=== PATIENT | female | born 1945 | race Caucasian/White ===

== ENCOUNTER 2016-11-07 18:34 | Emergency (ER) | payer MEDICARE, OTHER ==
[2016-11-07] VITALS (7 sets, daily range): BP systolic 164–216; BP diastolic 64–119; PULSE 82–139; RESP 16–20; TEMP 98.1; O2SAT 97–100
[~2016-11-07] VITALS: Ht 160 cm; Wt 75.0 kg
[~2016-11-07 18:34] MED LIST: B12-1CHW PO; CYCL1TAB29 PO; ENAL10TA PO; HYDR-3583 PO; LEVA750T PO; WARF-23 PO; ZOFR4TAB3 SL
[2016-11-07] MEDS ORDERED: diphenhydrAMINE HCL 50 MG/ML VIAL IVP ONE (19:45)
[2016-11-07] MEDS ORDERED: PROCHLORPERAZINE INJ 10 MG/2 ML VIAL IVP ONE (19:45)
[2016-11-07] MEDS ORDERED: MORPHINE SULFATE 8 MG/ML INJ IV PUSH ONE (19:45)
[2016-11-07] MEDS ORDERED: KETOROLAC TROMETHAMINE 30 MG/ML (IVP) VIAL IVP ONE (19:45)
[2016-11-07] MEDS ORDERED: SODIUM CHLORIDE 0.9% FLUSH 10 ML FLUSH IVF PRN (19:45)
[2016-11-07] MEDS ORDERED: hydrALAZINE HCL 20 MG/ML VIAL IV PUSH ONE (19:45)
--- NOTE | 2016-11-07 19:52 | PD ---
HPI Chief Complaint: Headache Time Seen by Provider: 19:33 Travel History International Travel<30 days: No Contact w/Intl Traveler<30days: No Traveled to known affect area: No History of Present Illness HPI The patient is a 71-year-old female with a history of migraine headaches who complains of a left frontal headache beginning 3 days ago. The headache got worse in the last 4 days. Usually she is able to take a pain pill and get rid of the headaches but this time it did not work. The last time she had a similar headache was around 2011. She does have nausea and vomiting and photophobia and phonophobia. She is not on any blood thinners and denies any head trauma. She denies any fever. She denies any stiff neck. She has generalized weakness. She denies any focal weakness or sensory loss. The patient is under pain management for chronic back pain. She also states she has been under a lot of stress lately. PFSH Past Medical History Hx Anticoagulant Therapy: No AAA: Yes Arthritis: Yes Atrial Fibrillation: Yes Autoimmune Disease: Yes (RA) Blood Disorders: No Anxiety: No Depression: No Cancer: No Cardiovascular Problems: Yes (htn on meds) High Cholesterol: Yes Cerebrovascular Accident: Yes (TIA) Diminished Hearing: No Endocrine: No Gastrointestinal Disorders: No Genitourinary: No Headaches: Yes Hypertension: Yes Immune Disorder: Yes Musculoskeletal: Yes (Chronic back pain ) Neurologic: Yes Psychiatric: No Reproductive: No Respiratory: No Menopausal: Yes Past Surgical History Abdominal Surgery: Yes (APPENDIX) AICD: No Appendectomy: Yes Arteriovenous Shunt: No Genitourinary Surgery: Yes (Bladder tuck) Gynecologic Surgery: Yes (hysterectomy) Hysterectomy: Yes Insulin Pump: No Joint Replacement: Yes (r knee replacement) Pacemaker: No Social History Alcohol Use: No Tobacco Use: No Substance Use: No Allergies-Medications (Allergen,Severity, Reaction): Coded Allergies: Penicillin (Verified Allergy, Severe, Hives, 11/07/16) Reported Meds & Prescriptions Reported Meds & Active Scripts Active Phenergan (Promethazine HCl) 25 Mg Tab 25 Mg PO Q6H PRN Fioricet (Novxbehili-Mgcqlcddaeuut-Iegftssz) 50-300-40 Mg Cap 1-2 Cap PO Q6H PRN Reported Aspirin 81 Mg Tabdr 81 Mg PO DAILY Flexeril (Cyclobenzaprine HCl) 10 Mg Tab 10 Mg PO BID Hydrocodone-Acetaminophen 10-325 mg Tab 1 Tab PO Q6H PRN Enalapril (Enalapril Maleate) 10 Mg Tab 10 Mg PO DAILY D52-Ulvvpq (Methylcobalamin) 1 Mg Chew 1,000 Mg PO DAILY Review of Systems Except as stated in HPI: all other systems reviewed are Neg Physical Exam Narrative GENERAL: The patient is alert, oriented 3, slightly anxious appearing in moderate apparent distress with her headache. Her vital signs show blood pressure 173/98 but are otherwise normal. SKIN: Focused skin assessment warm/dry. HEAD: Atraumatic. Normocephalic. EYES: Pupils equal and round. No scleral icterus. No injection or drainage. ENT: No nasal bleeding or discharge. Mucous membranes pink and moist. NECK: Trachea midline. No JVD. The patient flexes neck so that her chin touches chest without any problem, there is no meningismus. CARDIOVASCULAR: Regular rate and rhythm. No murmur appreciated. RESPIRATORY: No accessory muscle use. Clear to auscultation. Breath sounds equal bilaterally. GASTROINTESTINAL: Abdomen soft, non-tender, nondistended. Hepatic and splenic margins not palpable. MUSCULOSKELETAL: No obvious deformities. No clubbing. No cyanosis. No edema. NEUROLOGICAL: Awake and alert. No obvious cranial nerve deficits. Motor grossly within normal limits. Normal speech and gait. PSYCHIATRIC: The patient appears slightly anxious; insight and judgment normal. Data Data Last Documented VS Vital Signs Date Time Temp Pulse Resp B/P Pulse Ox O2 Delivery O2 Flow Rate FiO2 11/07/16 20:21 99 18 165/64 100 Room Air 11/07/16 18:44 98.1 Orders Complete Blood Count With Diff (11/07/16 19:44) Basic Metabolic Panel (Bmp) (11/07/16 19:44) Westergren Sedimentation Rate (11/07/16 19:44) C-Reactive Protein (Crp) (11/07/16 19:44) Ct Brain W/O Iv Contrast(Rout) (11/07/16 19:44) Ecg Monitoring (11/07/16 19:44) Iv Access Insert/Monitor (11/07/16 19:44) Oximetry (11/07/16 19:44) Sodium Chloride 0.9% Flush (Ns Flush) (11/07/16 19:45) Ketorolac Inj (Toradol Inj) (11/07/16 19:45) Prochlorperazine Inj (Compazine Inj) (11/07/16 19:45) Diphenhydramine Inj (Benadryl Inj) (11/07/16 19:45) Morphine Inj (Morphine Inj) (11/07/16 19:45) Hydralazine Inj (Apresoline Inj) (11/07/16 19:45) Potassium Chloride (Kcl) (11/07/16 20:30) Electrocardiogram (11/07/16 19:26) Labs Laboratory Tests Test 11/07/16 19:40 White Blood Count 4.7 TH/MM3 Red Blood Count 4.62 MIL/MM3 Hemoglobin 13.6 GM/DL Hematocrit 41.9 % Mean Corpuscular Volume 90.8 FL Mean Corpuscular Hemoglobin 29.4 PG Mean Corpuscular Hemoglobin 32.3 % Concent Red Cell Distribution Width 14.1 % Platelet Count 285 TH/MM3 Mean Platelet Volume 6.7 FL Neutrophils (%) (Auto) 67.2 % Lymphocytes (%) (Auto) 24.9 % Monocytes (%) (Auto) 6.9 % Eosinophils (%) (Auto) 0.7 % Basophils (%) (Auto) 0.3 % Neutrophils # (Auto) 3.2 TH/MM3 Lymphocytes # (Auto) 1.2 TH/MM3 Monocytes # (Auto) 0.3 TH/MM3 Eosinophils # (Auto) 0.0 TH/MM3 Basophils # (Auto) 0.0 TH/MM3 CBC Comment DIFF FINAL Differential Comment Erythrocyte Sedimentation Rate 6 mm/hr Sodium Level 139 MEQ/L Potassium Level 3.1 MEQ/L Chloride Level 102 MEQ/L Carbon Dioxide Level 27.1 MEQ/L Anion Gap 10 MEQ/L Blood Urea Nitrogen 10 MG/DL Creatinine 0.63 MG/DL Estimat Glomerular Filtration 93 ML/MIN Rate Random Glucose 104 MG/DL Calcium Level 9.1 MG/DL MDM Medical Decision Making Medical Screen Exam Complete: Yes Emergency Medical Condition: Yes Medical Record Reviewed: Yes Interpretation(s) The CBC is normal. The basic metabolic profile shows a potassium 3.1 but is otherwise unremarkable. The Westergren sedimentation rate is normal. Differential Diagnosis Migraine headache, tension headache, intracranial bleedunlikely, normal pressure hydrocephalushighly unlikely, temporal arteritisunlikely Narrative Course The patient appears to have a migraine headache. It is on the left side and associated with photophobia/phonophobia. It is now 9:18 PM and the patient feels much better after having had the medication. Plan: The patient be given Fioricet and Phenergan. She has pain medications at home. Diagnosis Primary Impression: Migraine headache Ruled Out: Temporal arteritis Additional Instructions: Take one or 2 Fioricet at the beginning of the headache. The Phenergan is for nausea and also helps with a headache. He can take your pain medication that has been prescribed your pain management physician along with these medications. Follow-up with her primary care physician this week. Med/Other Pt SpecificInfo: Prescription(s) given Scripts Promethazine (Phenergan)25 Mg Tab25 Mg PO Q6H PRN (Nausea/Vomiting) #30 TAB Ref 0 Prov:Merrill Mendosa MD 11/07/16 Vdatptmhxu-Oloyosnkfuuwf-Sxmxxprc (Fioricet)50-300-40 Mg Cap1-2 Cap PO Q6H PRN ( HEADACHE) #30 CAP Ref 0 Prov:Merrill Mendosa MD 11/07/16 Disposition: 01 DISCHARGE HOME Condition: Stable Merrill Mendosa MD Nov 07, 2016 19:52 Merrill Mendosa MD Nov 07, 2016 19:52
[2016-11-07] MEDS ORDERED: CYCL1TAB29 PO (20:01)
[2016-11-07] MEDS ORDERED: ASPI1TAB69 PO (20:01)
[2016-11-07 20:12] LABS: AUTOMATED NEUTROPHIL # 3.2 TH/MM3 (1.8-7.7); BASOPHIL % 0.3 % (0.0-2.0); EOSINOPHIL % 0.7 % (0.0-4.0); HEMATOCRIT 41.9 % (35.0-46.0); HEMO FLAGS DIFF FINAL; LYMPH % 24.9 % (9.0-44.0); LYMPHOCYTE # 1.2 TH/MM3 (1.0-4.8); MEAN CELL VOLUME 90.8 FL (80.0-100.0); MEAN CORPUSCULAR HEMOGLOBIN 29.4 PG (27.0-34.0); MEAN CORPUSCULAR HGB CONC 32.3 % (32.0-36.0); MONO % 6.9 % (0.0-8.0); NEUT % 67.2 % (16.0-70.0); PLATELET COUNT 285 TH/MM3 (150-450); RED BLOOD COUNT 4.62 MIL/MM3 (4.00-5.30); RED CELL DISTRIBUTION WIDTH 14.1 % (11.6-17.2); WHITE BLOOD COUNT 4.7 TH/MM3 (4.0-11.0)
[2016-11-07 20:29] LABS: POTASSIUM 3.1 MEQ/L (3.5-5.1)
[2016-11-07] MEDS ORDERED: POTASSIUM CHLORIDE 20 MEQ CONTROLLED RELEASE TAB PO ONE (20:30)
[2016-11-07 20:32] LABS: BICARBONATE 27.1 MEQ/L (21.0-32.0)
--- NOTE | 2016-11-07 21:06 | RADHPO ---
EXAM DATE/TIME: 11/07/2016 20:23 [facility] COMPARISON: CT BRAIN W/O CONTRAST, December 21, 2011, 13:38. INDICATIONS : Left frontal headache for three days. RADIATION DOSE: 60.26 CTDIvol (mGy) MEDICAL HISTORY : Hypertension. Cerebrovascular disease. SURGICAL HISTORY : None. ENCOUNTER: Initial ACUITY: 3 days PAIN SCALE: 9/10 LOCATION: Left frontal TECHNIQUE: Multiple contiguous axial images were obtained of the head. Using automated exposure control and adj ustment of the mA and/or kV according to patient size, radiation dose was kept as low as reasonably a chievable to obtain optimal diagnostic quality images. FINDINGS: CEREBRUM: The ventricles are normal for age. No evidence of midline shift, mass lesion, hemorrhage or acute in farction. No extra-axial fluid collections are seen. POSTERIOR FOSSA: The cerebellum and brainstem are intact. The 4th ventricle is midline. The cerebellopontine angle i s unremarkable. EXTRACRANIAL: The visualized portion of the orbits is intact. SKULL: The calvaria is intact. No evidence of skull fracture. CONCLUSION: Negative noncontrast CT brain. Jason Cabrera MD on November 07, 2016 at 21:03 Board Certified Radiologist. This report was verified electronically.
[2016-11-07] MEDS ORDERED: BUTA1CAP PO (21:15)
[2016-11-07] MEDS ORDERED: PROM25TA5 PO (21:16)
--- NOTE | 2016-11-08 14:21 | EKG ---
Date Performed: 11/07/2016 Time Performed: 19:26:08 PTAGE: 71 years EKG: Sinus rhythm with PAC(s) rSr'(V1) - probable normal variant Compared to prior tracing no significant change Eliceo chen ECG PREVIOUS TRACING : 06/26/16 @19:27:36 DOCTOR: Jose Pratt Interpretating Date/Time 11/08/2016 14:20:59
== END 2016-11-07 21:52 | disposition home or self-care (01) ==
LOC: PHED 18:34
DX: G43.909 Migraine, unspecified, not intractable, without status migrainosus (principal); R94.31 Abnormal electrocardiogram [ECG] [EKG]; R11.2 Nausea with vomiting, unspecified; I71.4 Abdominal aortic aneurysm, without rupture; I48.91 Unspecified atrial fibrillation; I10 Essential (primary) hypertension; E78.00 Pure hypercholesterolemia, unspecified; Z86.73 Personal history of transient ischemic attack (TIA), and cerebral infarction without residual deficits
CPT/HCPCS: 70450; 80048; 85025; 85652; 86140; 93005; 96374; 96375; 99284; J0360; J0780; J1200; J1885; J2270

== ENCOUNTER 2017-02-05 21:34 | Emergency (ER) | payer MEDICARE, OTHER ==
[~2017-02-05] VITALS: Ht 160 cm; Wt 74.9 kg
[~2017-02-05 21:34] MED LIST changes: +ASPI1TAB69 PO; +BUTA1CAP PO; -LEVA750T PO; +PROM25TA5 PO; -WARF-23 PO; -ZOFR4TAB3 SL
[2017-02-05 21:41] VITALS: BP 132/80; PULSE 97; RESP 18; TEMP 98.7; O2SAT 97
[2017-02-05] MEDS ORDERED: CYAN1TAB24 (21:55)
[2017-02-05] MEDS ORDERED: PROM25TA10 PO (21:55)
--- NOTE | 2017-02-05 22:00 | PD ---
HPI Chief Complaint: skin problem Time Seen by Provider: 21:54 Travel History International Travel<30 days: No Contact w/Intl Traveler<30days: No Traveled to known affect area: No History of Present Illness HPI 71-year-old female presents to the emergency room for evaluation of left-sided painful back rash that started 2 days ago. Patient has history of shingles and states this feels the same. She reports excruciating pain. Pain is worsened with any palpation to the area. Reports difficulty sleeping secondary to pain and because she cannot lie on her left side. She is taking also relaxers and hydrocodone 10/325 for chronic back pain and states this is not improving her symptoms. Reports feeling feverish but did not actually take her temperature. She has not received her shingles vaccine. PFSH Past Medical History Hx Anticoagulant Therapy: No AAA: Yes Arthritis: Yes Atrial Fibrillation: Yes Autoimmune Disease: Yes (RA) Blood Disorders: No Anxiety: No Depression: No Cancer: No Cardiovascular Problems: Yes (htn on meds) High Cholesterol: Yes Cerebrovascular Accident: Yes (TIA) Diminished Hearing: No Endocrine: No Gastrointestinal Disorders: No Genitourinary: No Headaches: Yes (NEW ONSET) Hypertension: Yes Immune Disorder: Yes Musculoskeletal: Yes (Chronic back pain ) Neurologic: Yes Psychiatric: No Reproductive: No Respiratory: No Menopausal: Yes Past Surgical History Abdominal Surgery: Yes (APPENDIX) AICD: No Appendectomy: Yes Arteriovenous Shunt: No Genitourinary Surgery: Yes (Bladder tuck) Gynecologic Surgery: Yes (hysterectomy) Hysterectomy: Yes Insulin Pump: No Joint Replacement: Yes (r knee replacement) Pacemaker: No Social History Alcohol Use: No Tobacco Use: No Substance Use: No Allergies-Medications (Allergen,Severity, Reaction): Coded Allergies: Penicillin (Verified Allergy, Severe, Hives, 11/07/16) Reported Meds & Prescriptions Reported Meds & Active Scripts Active Phenergan (Promethazine HCl) 25 Mg Tab 25 Mg PO Q6H PRN Fioricet (Slvnhcwrbr-Wkatpnimbeqhw-Ckcocfqv) 50-300-40 Mg Cap 1-2 Cap PO Q6H PRN Reported Aspirin 81 Mg Tabdr 81 Mg PO DAILY Flexeril (Cyclobenzaprine HCl) 10 Mg Tab 10 Mg PO BID Hydrocodone-Acetaminophen 10-325 mg Tab 1 Tab PO Q6H PRN Enalapril (Enalapril Maleate) 10 Mg Tab 10 Mg PO DAILY H65-Byrmil (Methylcobalamin) 1 Mg Chew 1,000 Mg PO DAILY Review of Systems Except as stated in HPI: all other systems reviewed are Neg Physical Exam Narrative GENERAL: Well-nourished, well-developed female in no acute distress. Afebrile. Ambulatory. SKIN: Focused skin assessment warm/dry. There are several clusters of vesicles on erythematous base in the T12 distribution. HEAD: Normocephalic. EYES: No scleral icterus. No injection or drainage. NECK: Supple, trachea midline. No JVD or lymphadenopathy. CARDIOVASCULAR: Regular rate and rhythm without murmurs, gallops, or rubs. RESPIRATORY: Breath sounds equal bilaterally. No accessory muscle use. PSYCHIATRIC: No delusional thought processes. No hallucinations. Data Data Last Documented VS Vital Signs Date Time Temp Pulse Resp B/P Pulse Ox O2 Delivery O2 Flow Rate FiO2 02/05/17 21:41 98.7 97 18 132/80 97 MDM Medical Decision Making Medical Screen Exam Complete: Yes Emergency Medical Condition: Yes Medical Record Reviewed: Yes Differential Diagnosis Shingles, folliculitis, viral exanthem Narrative Course 71-year-old female presents to the emergency room for evaluation of a painful rash to her left lower back that started 2 days ago. Patient has history of shingles and states this feels the same. Physical exam reveals several clusters of vesicles on erythematous base in the T12 distribution on the left side. Rashes uncomplicated. It is tender to palpation. Patient was instructed to continue taking her prescribed pain medications and will be discharged with prescription for acyclovir. Told to follow-up with a PCP return for worsening symptoms. She understands and agrees to plan. Diagnosis Primary Impression: Shingles Qualified Code: B02.9 - Herpes zoster without complication Referrals: Primary Care Physician Patient Instructions: Shingles (ED) Additional Instructions: Rest and drink plenty of fluids. Take acyclovir as directed, until gone. Take ibuprofen with food as directed, as needed for pain. Apply ice to the affected area for 20 minutes at a time, as needed for pain and swelling. Follow-up with a primary care physician. Return to the emergency room for worsening symptoms. Disposition: 01 DISCHARGE HOME Condition: Stable Heidi Rosenbaum Feb 05, 2017 22:00
[2017-02-05] MEDS ORDERED: ACYC800T PO (22:01)
== END 2017-02-05 22:16 | disposition home or self-care (01) ==
LOC: PHEFT 21:34
DX: B02.9 Zoster without complications (principal); I48.91 Unspecified atrial fibrillation; M06.9 Rheumatoid arthritis, unspecified; I10 Essential (primary) hypertension; Z86.73 Personal history of transient ischemic attack (TIA), and cerebral infarction without residual deficits; G89.29 Other chronic pain; M54.9 Dorsalgia, unspecified; E78.00 Pure hypercholesterolemia, unspecified
CPT/HCPCS: 99283